=== PATIENT | female | born 1995 | race Caucasian/White ===

== ENCOUNTER → 2021-04-19 18:57 | Outpatient (CLI) | payer BC, SELFPAY ==
[2021-04-19 19:45] LABS: COVID19 -Nasal RAPID POSITIVE (Negative)
== END ==
PROVIDERS: Visit Provider Student in an Organized Health Care Education/Training Program
DX: U07.1 COVID-19 (principal); J02.9 Acute pharyngitis, unspecified
CPT/HCPCS: 87070; 87635